=== PATIENT | female | born 1950 | race Caucasian/White ===

== ENCOUNTER → 2019-12-07 14:59 | Outpatient (CLI) | payer OTHER, SELFPAY ==
--- NOTE | 2019-12-07 15:03 | DI.MRI.S_ITS ---
PROCEDURE: MR LUMBAR SPINE WO CON INDICATIONS: RADICULOPATHY, LUMBAR REGION TECHNIQUE: Noncontrast sagittal T1 spin echo and T2 fast echo, sagittal STIR, axial T1 and T2 fast spin echo through the lumbar spine. In cases with scoliosis, additional coronal T2 fast spin echo may be performed. COMPARISON: None. FINDINGS: Image quality: Excellent. Alignment and Curvature: There is trace retrolisthesis of L1 on L2, L2 on L3, L3 on L4, trace anterolisthesis of L4 on L5, L5 on S1. Bone Marrow: Marrow is of normal overall signal. There is a focus of increased T1 and T2 signal at T11, T12 and L3 suggestive of hemangiomas. Minimal to mild reactive endplate changes are present at L5-S1. No acute vertebral body compression fractures. Spinal Cord: Conus medullaris terminates at the L1-L2 level. Visualized cord demonstrates normal signal and size. Paraspinous Soft Tissues: No paravertebral masses. Discs: Severe desiccation is present at L5-S1, [id number] at L1-L2, L2-3, L4-5 and mild L5-S1. L1-L2: Minimal disc bulge without spinal stenosis or foraminal narrowing. Mild facet and ligamentum flavum hypertrophy are present. L2-L3: Mild disc bulge without spinal stenosis. Mild left and mild to moderate right foraminal narrowing with facet and ligamentum flavum hypertrophy. L3-L4: Mild disc bulge without spinal stenosis. Minimal left foraminal narrowing with facet and ligamentum flavum hypertrophy. L4-L5: Mild disc bulge including a right foraminal component. There is compromise of the right lateral recess. Moderate to severe right and minimal to mild left foraminal narrowing. There is slight nerve root flattening noted on the right. Significant facet and ligamentum flavum hypertrophy are present. L5-S1: Mild disc bulge including right foraminal extension. There is mild compromise of the right lateral recess. Severe right and left foraminal narrowing is present with nerve root flattening bilaterally. Facet and ligamentum flavum hypertrophy are present. IMPRESSION: 1. Multilevel degenerative changes as above. 2. No spinal stenosis. 3. Multilevel foraminal narrowing most severe at L5-S1 secondary to facet/ligamentum flavum arthropathy as well as anterolisthesis. Dictated by: Valeria Ledbetter M.D. on 12/09/2019 at 8:55 Approved by: Valeria Ledbetter M.D. on 12/09/2019 at 9:12
== END ==
PROVIDERS: Referring Provider Physician Assistant; Visit Provider Physician Assistant
DX: M47.26 Other spondylosis with radiculopathy, lumbar region (principal); M47.27 Other spondylosis with radiculopathy, lumbosacral region; M48.07 Spinal stenosis, lumbosacral region
CPT/HCPCS: 72148

== ENCOUNTER → 2020-02-15 13:37 | Outpatient (CLI) | payer OTHER, SELFPAY ==
[2020-02-17 08:00] LABS: COVID19 Sendout Not Detected (Not Detect)
== END ==
PROVIDERS: Visit Provider Physician Assistant
DX: Z11.59 Encounter for screening for other viral diseases (principal)
CPT/HCPCS: 87635

== ENCOUNTER 2020-02-18 10:13 | Inpatient (IN) | payer OTHER, MEDICARE, SELFPAY ==
[2020-02-17 10:33] VITALS: BMI 30.8
[2020-02-18] VITALS (14 sets, daily range): BP systolic 99–132; BP diastolic 42–79; PULSE 68–82; RESP 12–20; TEMP 35.6–37.1; O2SAT 90–98; BMI 29.9
--- NOTE | 2020-02-18 | DI.RAD.S_ITS ---
PROCEDURE: XR LUMBAR SPINE 2-3V INDICATIONS: L4-5 TLIF TECHNIQUE: 2 views of the lumbar spine were acquired. COMPARISON: None. FINDINGS: Bones: Digital acquisition imaging shows immediate postoperative appearance after posterior fusion procedure spanning L4-L5 with transverse pedicle screws and vertical fixation rods bilaterally. There also is an interbody disc prosthesis device at the L4-5 disc space. Soft tissues: Overlying bowel gas pattern is normal. No suspicious soft tissue calcifications. IMPRESSION: Normal alignment established after L4-5 posterior fusion and interbody disc cage prosthesis. Dictated by: Rhett Ritter M.D. on 02/18/2020 at 16:24 Approved by: Rhett Ritter M.D. on 02/18/2020 at 16:25
--- NOTE | 2020-02-18 12:33 | PM.PREOP ---
Pre-operative Note COVID-19 COVID-19 status: Negative Result date/Date tested (Pos, Neg/Pending): 02/15/20 Interval Note History & Physical reviewed/Exam performed by Physician: Yes Changes to H&P: No
[2020-02-18] MEDS: LACTATED RINGERS 1,000 ML 42 ML IV ×2 (13:00→15:58)
--- NOTE | 2020-02-18 13:21 | PM.OP.1 ---
Operative Date/Time/Diagnoses Date of procedure: 02/18/20 Time of procedure: 16:02 Pre-op diagnosis: Lumbar stenosis with radiculopathy Lumbar spondylolisthesis Post-op diagnosis: same Procedure & Clinicians Procedure: L4-5 TLIF (posterior/posterior interbody fusion) with cage L4-5 screws Iliac crest bone graft aspirate L4-5 laminectomy Use of microscope Placement of epidural catheter Same procedure as scheduled: Yes Indications: [age] year old female with intractable pain from stenosis. They had failed conservative management and requested operative intervention. Risks and benefits of surgery were discussed and appropriate consents were obtained. Surgeon: Isaiah Tracy Marketing Research Analyst: Ursula Chavarria Anesthesia Type: General Operative Notes Findings: None Closure Type: primary Specimen(s): none sent Prosthetic devices, grafts, tissues, transplants, or devices: NuVasive MAS Reline screws Globus Rise cage Applied: catheter Estimated Blood Loss (mL): 20 Procedure in detail: The patient was brought to the operating room and intubated on the table. A time-out was performed. They were then rolled over to the well-padded Shailesh table in the prone position. Preoperative antibiotics were given. The back was prepped and draped in the standard sterile fashion. Using fluoroscopy, a 4 cm longitudinal incision was made to the left of the midline. We used Bovie to come down to and split the lumbodorsal fascia. Using fluoroscopy and monitoring, we then percutaneously placed Jamshidi needles down the pedicles of L4 and L5 on the left side. These were changed out to guidewires and then we tapped and then placed the NuVasive MAS Reline screw shanks. We then opened up the retractors and used Bovie to clear up the posterolateral gutter as well as medially along the lamina to the spinous processes. A bur was used to decorticate the transverse processes. We brought in the microscope. Using a combination of bur and Kerrison rongeurs, a laminectomy was performed from the left side. We cleared over past the midline and carefully depressed the dura until we were able to decompress the opposite side. We cleared out the neural foramen. This completed the laminectomy at L4-5. This was separate and distinct from the TLIF approach as we were decompressing the severely stenotic central canal and the nerves. We then began the TLIF prep. A complete facetectomy was performed on this side at L4-5. We carefully cleaned up the remainder of the foramen until we could easily retract the exiting root as well as clearing medially below the dura and expose the disc space. The disc was prepped with bipolar and then an annulotomy was performed. We performed a diskectomy using a combination of paddles, ewelina, pituitaries, and curettes. We distracted the disc using a paddle and locked the retractor in an open position. We then filled the disc space with Osteocel bone graft. We then placed the globus rise cage under fluoroscopy and then filled this in with more bone graft. The distraction on the retractor was released to compress down. This completed the posterior interbody fusion portion of the TLIF at L4-5. An epidural catheter was then prepped with 4 mL of 0.5% Marcaine, 1 mg Stadol, 4 mg Duramorph, and 100 mcg of fentanyl and placed in the spinal canal by carefully depressing the dura and advancing it 6 cm cephalad under the remaining lamina without resistance. We then placed the screw heads, rosangela, and locked down the set screws. The wound was copiously irrigated. A small stab incision was made over the PSIS. We used a Jamshidi needle to aspirate several mL of bone marrow from the pelvis. This was mixed with the remaining Osteocel and combined with all of the locally harvested bone graft and placed in the posterolateral gutter for the posterior fusion of the TLIF at L4-5. The muscle fascia was closed. The epidural catheter was then injected without resistance and the catheter was pulled. We then went to the opposite side. Again using fluoroscopy, a 3 cm incision was made and Bovie was used to come down to split the fascia. Using neural monitoring and fluoroscopy, Jamshidi needles were advanced down the pedicles of L4 and L5 on the right side. These were switched over guidewires, tapped, and screws placed. We then placed a rosangela and locked the set screws on this side. The wound was irrigated. The fascia was closed. Vancomycin powder was placed in the wounds. The superficial and skin were closed. A sterile dressing was placed. The patient was then rolled over extubated and brought to recovery room without complications. Complications: none Post-operative Condition: stable Disposition: PACU Plan for aftercare: Admit for 1-2 days
[2020-02-18] MEDS: CEFAZOLIN 2 GM/100 ML FROZ.PIGGY IV ×2 (14:04→21:30)
--- NOTE | 2020-02-18 14:29 | SUR.OPER ---
Prone on spine table, head in foam head support, padded chest and pelvic supports, gel pad at knees, lower legs supported by pillows; nipples, genitalia and toes free of pressure, arms secured on foam padded arm boards at <90 degrees abduction. Tape over blanket at thigh secured to table.
[2020-02-18] MEDS: THROMBIN (RECOMBINANT) 5,000 UNIT VIAL 5000 UNIT TOP (14:41)
[2020-02-18] MEDS: VANCOMYCIN 1,000 MG VIAL 1000 MG TOP (14:41)
[2020-02-18] MEDS: SODIUM CHLORIDE 0.9% 1,000 ML, GENTAMICIN 80 MG IRR (14:41)
[2020-02-18] MEDS: BUPIVACAINE 0.5% (PF) 4 ML, MORPHINE-PF 4 MG, BUTORPHANOL 1 MG, fentaNYL 100 MCG INJ (15:30)
[2020-02-18] MEDS: HYDROMORPHONE 2 MG INJ IV ×4 (16:18→16:41)
[2020-02-18] MEDS: LORazepam 2 MG/ML INJ 0.5 MG IV (16:20)
[2020-02-18] MEDS: hydrOXYzine pamoate 25 MG CAPSULE PO (16:51)
[2020-02-18] MEDS: OXYCODONE IR 5 MG TABLET PO ×2 (16:51→20:14)
--- NOTE | 2020-02-18 17:20 | SUR.PHASEI ---
Report called to
--- NOTE | 2020-02-18 17:34 | SUR.PHASEI ---
Patient transferred to the floor. Report given to Natalya. VS stable. Dressing checked with RN. IV saline locked.
[2020-02-18] MEDS: CELECOXIB 200 MG CAPSULE 400 MG PO (18:28)
[2020-02-18] MEDS: LACTATED RINGERS 1,000 ML 125 ML IV (18:28)
[2020-02-18] MEDS: GABAPENTIN 600 MG TABLET PO (21:29)
[2020-02-18] MEDS: SENNOSIDES 8.6 MG TABLET 17.2 MG PO (21:29)
[2020-02-18] MEDS: DOCUSATE 100 MG CAPSULE PO (21:29)
[2020-02-18] MEDS: CELECOXIB 200 MG CAPSULE PO (21:29)
[2020-02-18] MEDS: SIMVASTATIN 20 MG TABLET 10 MG PO (21:30)
--- NOTE | 2020-02-18 23:27 | PC.NURSE ---
Patient doing well post op. Pain 7/, given PRN oxycodone with relief to 2/10 pain. Ate all of her dinner. O2 @ 97, down to 93 when sleeping. On 2L O2.
[2020-02-19] VITALS: BP 104/57; PULSE 72; RESP 18; TEMP 36.5; O2SAT 95
[2020-02-19 03:41] VITALS: BP 100/59; PULSE 70; RESP 18; TEMP 36.2; O2SAT 97
[2020-02-19] MEDS: LACTATED RINGERS 1,000 ML 125 ML IV (03:53)
[2020-02-19] MEDS: CEFAZOLIN 2 GM/100 ML FROZ.PIGGY IV (05:31)
[2020-02-19] MEDS: OXYCODONE IR 5 MG TABLET PO ×3 (05:31→15:26)
[2020-02-19] MEDS: LEVOTHYROXINE 100 MCG TABLET PO (05:48)
[2020-02-19 06:20] LABS: Hematocrit 34.3 % (36-46); Hemoglobin 11.2 g/dL (12.0-16.0)
[2020-02-19 07:20] VITALS: BP 99/58; PULSE 69; RESP 15; TEMP 36.6; O2SAT 94
--- NOTE | 2020-02-19 07:43 | PM.PNPO.1 ---
Subjective Subjective Date Patient Seen: 02/19/20 Time Patient Seen: 07:43 Interval history: She is doing very well. Pain is about 5/10. No leg symptoms. Exam Vital Signs (past 8 hours): - 02/19/20 00:00 02/19/20 03:41 Temperature 97.7 F 97.1 F L Pulse Rate 72 70 Respiratory Rate 18 18 Blood Pressure 104/57 L 100/59 L Pulse Oximetry 95 97 Oxygen Delivery Method Nasal Cannula Oxygen Flow Rate 0 Const Orientation: alert and oriented x3 Back/Spine/Pelvis Other: CDI. 5/5 motor both lower extremities Objective Labs Result Diagrams: 02/19/20 06:00 Labs: Laboratory Results - last 24 hr 02/19/20 06:00 Hgb 11.2 L Hct 34.3 L Assessment & Plan Post-op Postoperative Procedures: Procedures Operation Date: 02/18/20 12:15 Actual Procedures Side Surgeon p L4-5 laminectomy & instrumented fusion (TLIF) with bone graft Isaiah Tracy MD She is doing well. Mobilize today with physical therapy. Anticipate discharge home probably tomorrow Quality VTE Deep Vein Thrombosis/Pulmonary Embolism Present on Admission: No
[2020-02-19] MEDS: CELECOXIB 200 MG CAPSULE PO ×2 (08:51→21:59)
[2020-02-19] MEDS: ACETAMINOPHEN 325 MG TABLET PO (08:51)
[2020-02-19] MEDS: DOCUSATE 100 MG CAPSULE PO ×2 (08:51→21:58)
[2020-02-19] MEDS: PANTOPRAZOLE 20 MG TABLET PO (08:51)
--- NOTE | 2020-02-19 09:15 | PT.IIE ---
Current Diagnoses Spondylolisthesis, lumbar region (02/18/20) Spinal stenosis, lumbar region with neurogenic claudication (02/18/20) Surgery Performed Operation Date: 02/18/20 12:15 Actual Procedures p L4-5 laminectomy & instrumented fusion (TLIF) with bone graft - Isaiah Tracy MD Surgical History (Last Updated 02/17/20 @ 12:18 by Renita Azul, RN) History of 2 sections (Acute) History of hysterectomy (Acute) History of surgery (Acute) Hx of cholecystectomy (Acute) Hx of knee surgery (Acute) Hx of tonsillectomy (Acute) Medical History (Last Updated 02/17/20 @ 12:18 by Renita Azul RN) Ankle fracture, right (Acute) Arthritis (Acute) GERD (gastroesophageal reflux disease) (Acute) Hearing impaired (Acute) HLD (hyperlipidemia) (Acute) Hypothyroid (Acute) Sciatica (Acute) Superficial vein thrombosis (Acute 2018) Tinnitus (Acute) Wrist fracture (Acute) Physical Therapy Inpatient Evaluation/Re-Eval M1 PT/OT-IP Prior Functional Status Start: 02/19/20 12:48 Freq: NEEDED Status: Active Protocol: Document 02/19/20 09:15 AB (Rec: 02/19/20 13:08 [id number]) Medical Review Prior Functional Status Medical History Reviewed Yes Communication able to make needs known Mobility and Gait pt stated that she is modified independent with all mobilities and ambulation without AD indoors but uses a walking stick for outdoor mobility. stated that since September of this year, due to pain , was needing to use more of her SPC for indoor mobility but can still ambulate without AD but has to use SPC for outdoor mobility Social History Household Members none Living Arrangements House Number of Floors (Floors) Two Floors Number of Stairs To Enter/Railing? 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 pt has a shower chair with back rest at her own house that she can put at her daughter's shower to use M2 PT-IP Current Condition Start: 02/19/20 12:48 Freq: NEEDED Status: Active Protocol: Document 02/19/20 09:15 AB (Rec: 02/19/20 13:08 [email or web address]) Physical Therapy Current Condition Current Condition Evaluation Date 02/19/20 Treatment Diagnosis s/p L4-5 TLIF/ fusion; difficulty in walking Onset Date 02/18/20 Precautions Lumbar Precautions Log Roll,No Twisting,Limit Bending,Lifting Restriction of 10 lbs,Gait Belt above Incisional Area M3 PT-IP Subjective Start: 02/19/20 12:48 Freq: NEEDED Status: Active Protocol: Document 02/19/20 09:15 AB (Rec: 02/19/20 13:08 AB [email or web address]) Subjective Physical Therapy Visit Type Type Initial Evaluation Visit Start Time 09:15 Visit Stop Time 10:14 Total Visit Minutes 59 Number of MUSIC INDUSTRY INTERN Visits 0 Physical Therapy Visit Comments Patient Comments pt is agreeable to do PT Therapy Pain Assessment Pain When Pain Assessed At Rest Pain Present Pain Present Pain Reported Location back Intensity 4 Scale Used Numeric (0 - 10) Pain Management Techniques Apply Cold,Distraction, Modification of Treatment,Re- positioning,Timing of Activity with Medications M4 PT-IP Mobility and Gait Start: 02/19/20 12:48 Freq: NEEDED Status: Active Protocol: Document 02/19/20 09:15 AB (Rec: 02/19/20 13:08 [email or web address]) PT-Bed Mobility Assessment Rolling Type of Rolling Log Rolling Supine to Sit Supine to Sit Contact Guard Assistance PT-Transfer Assessment Sit to and From Stand Sit to and from Stand Moderate Assistance,Maximum Assistance,1 Person Assistance ,Use of Upper Extremities Equipment Transfer Assistive Device Gait Belt,Front Wheeled Walker Orthotic/Prosthetic Devices or Brace: No Transfers Transfer Destination Chair Transfer Technique ambulated using FWW Transfer Ability Level of Assist Moderate Assistance,Maximum Assistance,1 Person Assistance ,Use of Upper Extremities Comments Mobility Comments educated pt on back precautions and log roll bed mobility. BP supine: 92/51. completed supine to sit CGA and cues. pt was able to sit on EOB SBA. c/o slight dizziness. BP checked: 96/62. completed sit to stand x 2 attempts mod to max A and max cues. chair positioned close to pt. complated step transfer to chair using FWW mod to max A and cues. BP checked after transfer: 96/46. pt agreed to ambulate and completed sit to stand from chair mod to max A and cues and ambulated ~ 15 ft using FWW mod to max A and cues. slight R knee unsteadiness requiring cues for quad activation. pt agreed to sit up on chair. positioned on chair. call light and table placed within reach. BP at end of PT session: 94/55. informed pt regarding current mobility and caregiver training recommendation. set up a 2pm PT session later today with daughter. also reminded pt to obtain a FWW and understood. informed nurse regarding BP reading and c/o dizziness. Gait Assessment Gait Gait Assistance Required: Moderate Assistance,Maximum Assistance,1 Person Assist Distance (Feet) 15 Able to Maintain Weight Bearing Status Yes During Gait Assistive Devices Assistive Device Gait Belt,Front Wheeled Walker Orthotic/Prosthetic Devices or Brace: No Gait Deviations General Gait Pattern Antalgic,Step-to Gait Factors Limiting Gait Function Factors Limiting Gait Function Decreased Activity Tolerance, Decreased Sensation,Decreased Strength,Limited Range of Motion,Pain,Poor Balance,Poor Safety Awareness PT-Balance Assessment Sitting Balance and Reactions Static Sitting Balance Ability Good Dynamic Sitting Balance Ability Good Standing Balance and Reactions Static Standing Balance Ability Fair Dynamic Standing Balance Ability Fair Device Used FWW M5 PT-IP Objective Assessments Start: 02/19/20 12:48 Freq: NEEDED Status: Active Protocol: Document 02/19/20 09:15 AB (Rec: 02/19/20 13:08 AB [email or web address]) Orientation Orientation/Cognition Level of Alertness Alert Orientation Name,Place,Situation Safety Awareness Decreased Safety Awareness Gross Range of Motion Lower Extremity ROM Assessment Within Functional Limits Strength Lower Extremity Strength Assessment Bilaterally Impaired Comments Strength Comments RLE 4-/5 LLE 4/5 Coordination Assessment Gross Coordination Gross Coordination WNL Sensation Assessment Comments Sensation Comments able to determine light touch sensation on BLE but stated that sensation is decreased Muscle Tone Muscle Tone WNL Yes M6 PT-IP Treatment Start: 02/19/20 12:48 Freq: NEEDED Status: Active Protocol: Document 02/19/20 09:15 AB (Rec: 02/19/20 13:08 AB [email or web address]) Physical Therapy Treatment Education Education Provided Precautions,Weight Bearing Status,Post-Op Packet,Safety M7 PT-IP Assessment and Plan Start: 02/19/20 12:48 Freq: NEEDED Status: Active Protocol: Document 02/19/20 09:15 AB (Rec: 02/19/20 13:08 AB [email or web address]) PT Summary Assessment and Plan Potential Rehabilitation Potential Good Status of Condition at Evaluation Stable Summary Impairments Pain,ROM,Strength,Balance, Coordination,Sensation,Tone, Cognition,Bed Mobility, Transfers,Gait,Activity Tolerance Assessment Summary pt requiring mod to max A with mobility and c/o dizziness during mobility. pt plans to go home to daughter's house and daughter will assist pt. will conduct caregiver training and set up for 2 pm today. will conduct further training if needed. will continue to assess progress. Goals Bed Mobility Goal Standby Assistance Transfer Goal Standby Assistance,Front Wheeled Walker Gait Goal Standby Assistance,Front Wheel Walker Gait Distance 100 Other Goals improve ambulation using FWW/ 4WW SBA 200 ft up/down steps 1 rail SBA Days to Meet Goals 5 Frequency of Treatment Frequency Of Treatment Twice a Day Treatment Plan Physical Therapy Treatment Plan Bed Mobility Training,Transfer Training,Gait Training, Therapeutic Exercise,Balance Retraining,Post Op Education, Discharge Planning,Hot or Cold Pack,Neuromuscular Re-ed, Coordination Retraining,Manual Therapy Recommendations To Nursing Amount of Assist Needed 1 Person Assist Discharge Recommendations PT Discharge Recommendations Home with 31/10 Assist,Home Health Transportation Needs at Discharge Private Vehicle
[2020-02-19 11:00] VITALS: BP 105/55; PULSE 69; RESP 15; TEMP 36.2; O2SAT 96
--- NOTE | 2020-02-19 11:56 | PC.NURSE ---
Assess- Patient just medicated with 5mg of oxycodone, this has been effective for pain control. Dressing to lower back is cdi. CMS wnl and she denies any numbness or tingling to her extremities. Up with 1 person assist. She is having a little bit of trouble getting out of bed with physical therapy but is able to do it slowly. Sitting up in the chair now and tolerating lunch. She has been heplocked.
--- NOTE | 2020-02-19 14:09 | PT.IPTN ---
Current Diagnoses Spondylolisthesis, lumbar region (02/18/20) Spinal stenosis, lumbar region with neurogenic claudication (02/18/20) Surgery Performed Operation Date: 02/18/20 12:15 Actual Procedures p L4-5 laminectomy & instrumented fusion (TLIF) with bone graft - Isaiah Tracy MD Physical Therapy Treatment Note M2 PT-IP Current Condition Start: 02/19/20 12:48 Freq: NEEDED Status: Active Protocol: Document 02/19/20 09:15 AB (Rec: 02/19/20 13:08 AB [id number]) Physical Therapy Current Condition Current Condition Evaluation Date 02/19/20 Treatment Diagnosis s/p L4-5 TLIF/ fusion; difficulty in walking Onset Date 02/18/20 Precautions Lumbar Precautions Log Roll,No Twisting,Limit Bending,Lifting Restriction of 10 lbs,Gait Belt above Incisional Area M3 PT-IP Subjective Start: 02/19/20 12:48 Freq: NEEDED Status: Active Protocol: Document 02/19/20 14:09 AB (Rec: 02/19/20 15:49 AB [id number]) Subjective Physical Therapy Visit Type Type Treatment Note Visit Start Time 14:09 Visit Stop Time 14:52 Total Visit Minutes 43 Number of SALES ENGAGEMENT MANAGER Visits 0 Physical Therapy Visit Comments Patient Comments pt is agreeable to do PT; daughter in room for cc training Therapy Pain Assessment Pain When Pain Assessed At Rest Pain Present Pain Present Pain Reported Location back Intensity 5 Scale Used Numeric (0 - 10) Pain Management Techniques Distraction,Modification of Treatment,Re-positioning, Timing of Activity with Medications M4 PT-IP Mobility and Gait Start: 02/19/20 12:48 Freq: NEEDED Status: Active Protocol: Document 02/19/20 14:09 AB (Rec: 02/19/20 15:49 AB [id number]) PT-Bed Mobility Assessment Rolling Type of Rolling Log Rolling Level of Assist Standby Assistance Supine to Sit Supine to Sit Standby Assistance Sit to Supine Sit to Supine Minimal Assistance,Moderate Assistance,1 Person Assistance PT-Transfer Assessment Sit to and From Stand Sit to and from Stand Contact Guard Assistance,1 Person Assistance,Use of Upper Extremities Equipment Transfer Assistive Device Gait Belt,Front Wheeled Walker Orthotic/Prosthetic Devices or Brace: No Transfers Transfer Destination Bed Transfer Technique ambulated using FWW Transfer Ability Level of Assist Contact Guard Assistance,1 Person Assistance,Use of Upper Extremities Comments Mobility Comments caregiver training conducted. educated daughter on pt's precautions and log roll bed mobility. showed daughter on how to use safety belt and was able to put safety belt on pt . daughter assisted pt with sit to stand and ambulation in room using FWW towards the bed. daughter was able to assist pt safely. pt completed supine <>sit x 2 sets. educated daughter on how to assist pt and was able to counter demonstrate. pt ambulated out to the hallway towards the stairs ~ 50 ft SBA . completed up/down stairs using bilateral rails CGA to min A and then completed again using just R rail requiring min A and cues. required assist for R LE stability and cues for R quads activation. pt requiring more stability with RLE towards end of stair climbing. showed daughter on how to assist pt but will need more training. pt unable to do stairs again due to tiredness. pt ambulated back to the room FWW CGA and completed sit to supine with daughter assisting. positioned pt in bed. call light and table placed within reach. set up more caregiver training with daughter : 1000 am tomorrow 02/19. Gait Assessment Gait Gait Assistance Required: Contact Guard Assist Distance (Feet) 50 Able to Maintain Weight Bearing Status Yes During Gait Assistive Devices Assistive Device Gait Belt,Front Wheeled Walker Orthotic/Prosthetic Devices or Brace: No Gait Deviations General Gait Pattern Antalgic,Decreased Stride Length,Decreased Feet Clearance Factors Limiting Gait Function Factors Limiting Gait Function Decreased Activity Tolerance, Decreased Sensation,Decreased Strength,Limited Range of Motion,Pain,Poor Balance,Poor Safety Awareness Stair Climbing Assessment Evaluation Level of Assist On Stairs Contact Guard Assistance, Minimal Assistance Devices Stair Climbing Assistive Devices Four Wheel Walker,Right Railing Technique/Endurance Stair Climbing Direction Ascend and Descend Stair Climbing Technique Step to Step Number of Steps Climbed 3 Stair Climbing Set # Repetitions (reps) 2 Comments Stair Climbing Comments pls refer to mobility section for details M5 PT-IP Objective Assessments Start: 02/19/20 12:48 Freq: NEEDED Status: Active Protocol: Document 02/19/20 09:15 AB (Rec: 02/19/20 13:08 AB [id number]) Orientation Orientation/Cognition Level of Alertness Alert Orientation Name,Place,Situation Safety Awareness Decreased Safety Awareness Gross Range of Motion Lower Extremity ROM Assessment Within Functional Limits Strength Lower Extremity Strength Assessment Bilaterally Impaired Comments Strength Comments RLE 4-/5 LLE 4/5 Coordination Assessment Gross Coordination Gross Coordination WNL Sensation Assessment Comments Sensation Comments able to determine light touch sensation on BLE but stated that sensation is decreased Muscle Tone Muscle Tone WNL Yes M6 PT-IP Treatment Start: 02/19/20 12:48 Freq: NEEDED Status: Active Protocol: Document 02/19/20 14:09 AB (Rec: 02/19/20 15:49 AB [id number]) Physical Therapy Treatment Education Education Provided Precautions,Safety M7 PT-IP Assessment and Plan Start: 02/19/20 12:48 Freq: NEEDED Status: Active Protocol: Document 02/19/20 14:09 AB (Rec: 02/19/20 15:49 AB [id number]) PT Summary Assessment and Plan Potential Rehabilitation Potential Good Summary Impairments Pain,ROM,Strength,Balance, Coordination,Sensation,Bed Mobility,Transfers,Gait, Activity Tolerance Progress Towards Goals Slow Progress due to Pain,Slow Progress due to Activity Tolerance Assessment Summary caregiver training conducted but further training needed. set up caregiver training with daughter again at 1000 am tomorrow 02/19. will continues to assess progress. Goals Bed Mobility Goal Standby Assistance Transfer Goal Standby Assistance,Front Wheeled Walker Gait Goal Standby Assistance,Front Wheel Walker Gait Distance 100 Other Goals improve ambulation using FWW/ 4WW SBA 200 ft up/down 6 steps 1 rail SBA Days to Meet Goals 5 Frequency of Treatment Frequency Of Treatment Twice a Day Treatment Plan Physical Therapy Treatment Plan Bed Mobility Training,Transfer Training,Gait Training, Therapeutic Exercise,Balance Retraining,Post Op Education, Discharge Planning,Hot or Cold Pack,Neuromuscular Re-ed, Coordination Retraining,Manual Therapy Recommendations To Nursing Amount of Assist Needed 1 Person Assist Discharge Recommendations PT Discharge Recommendations Home with 31/10 Assist,Home Health Transportation Needs at Discharge Private Vehicle
--- NOTE | 2020-02-19 14:23 | OT.IP.EVAL ---
Current Diagnoses Spondylolisthesis, lumbar region (02/18/20) Spinal stenosis, lumbar region with neurogenic claudication (02/18/20) Surgery Performed Operation Date: 02/18/20 12:15 Actual Procedures p L4-5 laminectomy & instrumented fusion (TLIF) with bone graft - Isaiah Tracy MD Past Medical History (Last Updated 02/17/20 @ 12:18 by Renita Azul, RN) Ankle fracture, right (Acute) Arthritis (Acute) GERD (gastroesophageal reflux disease) (Acute) Hearing impaired (Acute) HLD (hyperlipidemia) (Acute) Hypothyroid (Acute) Sciatica (Acute) Superficial vein thrombosis (Acute 2018) Tinnitus (Acute) Wrist fracture (Acute) Surgical History (Last Updated 02/17/20 @ 12:18 by Renita Azul RN) History of 2 sections (Acute) History of hysterectomy (Acute) History of surgery (Acute) Hx of cholecystectomy (Acute) Hx of knee surgery (Acute) Hx of tonsillectomy (Acute) Occupational Therapy Inpatient Evaluation/Re-Eval M1 PT/OT-IP Prior Functional Status Start: 02/19/20 12:48 Freq: NEEDED Status: Active Protocol: Document 02/19/20 09:15 AB (Rec: 02/19/20 13:08 [id number]) Medical Review Prior Functional Status Medical History Reviewed Yes Communication able to make needs known Mobility and Gait pt stated that she is modified independent with all mobilities and ambulation without AD indoors but uses a walking stick for outdoor mobility. stated that since September of this year, due to pain , was needing to use more of her SPC for indoor mobility but can still ambulate without AD but has to use SPC for outdoor mobility Social History Household Members none Living Arrangements House Number of Floors (Floors) Two Floors Number of Stairs To Enter/Railing? 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 stated that since September of this year, due to pain , was needing to use more of her SPC for indoor mobility but can still ambulate without AD but has to use SPC for outdoor mobility Activities of Daily Living and IADL's pt reports (I) with ADL/IADLs at baseline Social History Household Members none Living Arrangements House Number of Floors (Floors) Two Floors Number of Stairs To Enter/Railing? 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 [employer] pt has a shower chair with back rest at her own house that she can put at her daughter's shower to use M2 OT-IP Current Condition Start: 02/19/20 14:07 Freq: Status: Active Protocol: Document 02/19/20 14:08 RM (Rec: 02/19/20 14:23 RM [id number]) Occupational Therapy Current Condition Current Condition Evaluation Date 02/19/20 Treatment Diagnosis TLIF with bone graft Diagnosis Onset Date 02/18/20 Post Operative Precautions Lumbar Precautions Log Roll,No Twisting,Limit Bending,Lifting Restriction of 10 lbs,Gait Belt above Incisional Area M3 OT- IP Subjective and Pain Start: 02/19/20 14:07 Freq: Status: Active Protocol: Document 02/19/20 14:08 RM (Rec: 02/19/20 14:23 RM [id number]) OT- Subjective Occupational Therapy Visit Type Type Initial Evaluation Visit Start Time 13:20 Visit Stop Time 14:00 Total Visit Minutes 40 Occupational Therapy Visit Comments Patient Comments I don't want to [place] to do anything. My daughter will help. Patient/Caregiver Goals Return home with her daughter with goal to return to her own home when she is ready. OT Pain Assessment Pain When Pain Assessed During Mobility Pain Present Pain Present Pain Reported Location back Intensity 7 Scale Used Numeric (0 - 10) Description With Movement Pain Behaviors Facial Grimacing,Wincing Management Techniques Modification of Treatment,Re- positioning,Timing of Activity with Medications M4 OT- IP ADL's Start: 02/19/20 14:07 Freq: Status: Active Protocol: Document 02/19/20 14:08 RM (Rec: 02/19/20 14:23 RM [id number]) OT [id number] Comments OT Self-Feeding Comments not assessed, no concerns noted OT ADL-Grooming Comments OT Grooming Comments not assessed, no concerns noted OT ADL-Oral Care Comments Oral Care Comments not assessed, no concerns noted OT ADL-Dressing General Eval Upper Body Dressing Ability Independent Lower Body Dressing Ability Maximum Assistance Comments OT Dressing Comments Attempted ADL assessment for LB dressing, however, patient declined and reports plan for daughter to assist at discharge. Reviewed use of long handled equipment to assist with dressing with patient able to verbalize understanding. OT ADL-Toileting General Evaluation Toileting Ability Standby Assistance Areas Needing Assistance Empty Catheter or Colostomy Devices Toileting Assistive Devices Grab Bars Comments OT Toileting Comments Patient reports episodes of large urinary incontinence prior to surgery and is concerned with catheter removal. Discussed use of BSC to assist with episodes of urgency while her mobility is limited or at night and can also be placed over toilet at her daughter's home to assist with safe toilet transfers. Pt verbalized understanding and planning to purchase BSC. OT ADL-Bathing Comments OT Bathing Comments not assessed, anticipate need for assist with transfer into shower at tdischarge and LB bathing as needed with daughter planning to assist M5 OT- IP IADL's Start: 02/19/20 14:07 Freq: Status: Active Protocol: Document 02/19/20 14:08 RM (Rec: 02/19/20 14:23 RM [id number]) OT-Instrumental Activities of Daily Living Deficits IADL Deficits Identified Deficits Home Safety Awareness Home Safety Comments Patient with impaired performance with IADLs d/t pain and decreased functional mobility. Plans to discharge home with her daughter who will assist with IADLs. M6 OT- IP Functional Cognition Start: 02/19/20 14:07 Freq: Status: Active Protocol: Document 02/19/20 14:08 RM (Rec: 02/19/20 14:23 RM [id number]) Cognitive Factors Limiting Selfcare Function Cognitive Ability Level of Alertness Alert Attention Span Ability Capable of Focused Attention, Capable of Sustained Attention Ability to Follow Commands Able to Follow Multi-Step Commands Memory Description No Deficits Noted Safety Awareness No Deficits Noted Problem Solving Ability No deficits Noted Executive Function Ability No Deficits Noted Abstract Thinking Ability No Deficits Noted OT- Vision and Hearing OT- Hearing Assessment OT- Hearing Assessment WFL OT- Vision Assessment Visual Acuity WFL M7 OT- IP Mobility and Balance Start: 02/19/20 14:07 Freq: Status: Active Protocol: Document 02/19/20 14:08 RM (Rec: 02/19/20 14:23 RM [id number]) OT- Bed Mobility Assessment Rolling Type of Rolling Log Rolling Level of Assistance Standby Assistance Supine to Sit Supine to Sit Assist Standby Assistance Scooting Scooting to Edge of Bed Standby Assistance OT-Transfer Assessment Sit to and From Stand Sit to and from Stand Standby Assistance Transfers Transfer Ability Standby Assistance Technique Transfer Destination Bed,Chair,Toilet Devices Transfer Assistive Devices Front Wheeled Walker OT- Gait Assessment Gait Gait Assistance Required: Standby Assistance Assistive Devices Assistive Device Front Wheeled Walker OT- Balance Assessment Sitting Balance and Reactions Static Sitting Balance Ability Good Dynamic Sitting Balance Ability Good Standing Balance and Reactions Static Standing Balance Ability Good Dynamic Standing Balance Ability Fair M8 OT- IP Objective Assessments Start: 02/19/20 14:07 Freq: Status: Active Protocol: Document 02/19/20 14:08 RM (Rec: 02/19/20 14:23 RM [id number]) OT Gross Range of Motion Upper Extremity Range of Motion Assessment Within Functional Limits OT Strength Upper Extremity Strength Assessment Within Functional Limits M9 OT- IP Assessment and Plan Start: 02/19/20 14:07 Freq: Status: Active Protocol: Document 02/19/20 14:08 RM (Rec: 02/19/20 14:23 RM [id number]) OT Summary Assessment and Plan Potential Rehabilitation Potential Good Summary OT Impairments Pain,Range of Motion,Balance, Functional Mobility,Dressing, Toileting,Bathing,Toilet Transfers,Shower Transfers Progress Towards Goals Safe For Discharge Assessment Summary Patient and daughter provided education of AE/DME and patient declines further OT. Will plan to discharge OT services at this time. Frequency of Treatment Frequency Of Treatment Discharge Discharge Recommendations OT Discharge Recommendations Home with Assistance Other Discharge Recommendations Patient requests no further OT services and will discharge OT at this time. Safe for discharge home with daughter who was present at [facility] with all questions addressed. Home Equipment Needs BSC and sock-aid (also will benefit from primer expeditor and drier, dressing stick, and long-handled shoe horn which she already has). Provided handout on DME resources.
[2020-02-19 15:25] VITALS: BP 101/55; PULSE 69; RESP 16; TEMP 36.7; O2SAT 98
--- NOTE | 2020-02-19 16:52 | CM.DANOTE ---
DCP/Assessment: Reviewed chart. Patient is a 69yr old female admitted [facility] on 02-18-20. PCP listed is Gayatri Hodges. Primary payor is 1[facility]. Met with patient this AM explained CM/SW role. Patient up in recliner at time of visit, alert and oriented. Patient reports that she plans to d/c home when medically stable. Patient has family that includes daughter from [place] that will be coming to stay with her upon d/c. Patient has another daughter/Padmini nearby. Patient does not anticipate d/c planning needs at this time. CM team to continue to follow closely. P: Home when medically stable. No needs at time of assessment. CM team to continue to follow if needs arise. TISH Reyes Discharge Planning/Care Management CM Discharge Assessment Start: 02/19/20 16:47 Freq: Status: Active Protocol: Document 02/19/20 16:48 KJS (Rec: 02/19/20 16:52 KJS [id number]) Discharge Planning Assessment Assigned Dish Machine Operator TISH Reyes Contact Information Padmini Iraheta (daughter) Advance Directives? No History Provided By Patient,Medical Record Prior Living Arrangements House Household Members none Type of transporation used prior to Drives own vehicle admit Independent with ADL's Yes Caregiver for Another No DME Already Rented / Owned FWW / Walker Comment Patient has walker in room. Patient does not use DME at baseline. Daughter attempting to get her FWW for home use. Barriers to Discharge No Discharge Plan Home Transportation Arrangement Family to provide transport. Referrals Initiated None needed Additional Comment No anticipated d/c planning needs at time of assessment. CM team to continue to follow. Whiteboard Updated in Patient Room with Yes name and ext. # of Dish Machine Operator Review Status In Process Next Review Type Continued Stay Review Pre-Anesthesia Assessment Start: 02/17/20 10:33 Freq: Status: Active Protocol: Document 02/17/20 10:33 CAB (Rec: 02/17/20 11:53 CAB [id number]) Pre-Anesthesia Assessment Preferred Name Taylor Patient Information Reviewed Via Phone Assessment Assessment Completed With Patient H&P Completed Within 30 Days Yes Diagnostic Results EKG Comment Outside EKG, UA only scanned, COVID screen @ 02/15/20 Negative Primary Care Provider Gayatri Holiday Seen Specialist in Last 12 Months Yes Specialist Seen Orthopedist Primary Language Italian Telecasting Technician Required No Height 160.02 cm Weight 78.925 kg Body Mass Index (BMI) 30.8 Hearing Ability Hard of Hearing Visual Assist Glasses Dentition Type Teeth, Natural Present Barriers to Learning Auditory Hx Anesthesia Reactions No Hx Family Anesthesia Reaction No Hx Malignant Hyperthermia No Hx Blood Transfusions Yes: Anemia, unknown etiology 2013 Hx Blood Transfusion Reaction No Anesthesia Review Requested No alcohol intake current Alcohol Intake Frequency Other: Occasional Smoking Status Never smoker Substance Use Type does not use Pain Present Pain Reported Musculoskeletal Symptoms Back Pain,Muscle Weakness, Numbness,Radiating Pain into Limb,Tingling History of Falling (Recent or History of Yes ) Patient is completely paralyzed or No completely immobile Prosthesis or Orthotic Device Cane Mental Status Oriented to own ability Is patient on oxygen? No Does patient have GREGORIO/SOB Yes Hx Sleep Apnea No Currently Taking a Beta Vita No Can You Climb a Flight of Stairs Without Yes SOB Hx Chest Pain Yes Hx SOB Yes Hx Syncope or Dizziness No Anti-Coagulant Therapy No Has a Simulation Analyst No Cardiac Testing No Hx Pacemaker/ICD No Pacemaker Rep Required? No Cardiac Clearance Received Not Applicable Diet Type At Home Regular dysphagia No Comment Bowel urge incontinence r/t admit diagnosis Bladder Pattern Incontinent,Urgency Urinary Catheter Present No Hx Urinary Self Catheterization No Diabetes No Patient No Lactating No Hx Drug Resistant Organism No Presence of External or Internal Medical No Devices Have you had any close contact with No someone diagnosed with COVID-19? Marital Status Lives With none Prior Living Arrangements House Number of Floors (Floors) Two Floors Support System Child/Children Does the Patient Have Assistance After Yes: Will DC to daughter's Surgery house first to assist w/care Patient Discharge Plan Description Other Comment Pt advised 2 day length of stay per surgeon Feels Safe in Current Environment Yes Been Physically Hurt or Threatened By a No Person in Current Environment Do you have thoughts of harming yourself None or others? Are you currently considering suicide? No Do you have a plan to hurt yourself or No Plan others? Do You Have Any Spiritual Beliefs That No May Affect Your HC Choices? Do You Have Any Cultural Practices That No May Affect Your HC Choices? Comment Anabaptist Who Can We Speak to About Patient's Care Family, friends Identifying Code for Release of Patient Declines to issue Information Health Care Proxy/Next of Kin Padmini (daughter) Nickolas (son-in- law) Health Care Proxy Phone Number Padmini: [phone] Nickolas: Emergency Contact Name Padmini (daughter) Nickolas (son-in- law) Emergency Contact Phone Number Padmini: [phone] Nickolas: Advance Directives? No Power of Sewer System Supervisor No PAC Instructions Durable medical equipment, Medications to take/avoid, Nasal antibiotic,No ETOH/ petroleum product on skin DOS, NPO,Pre-surgical wash,Sensory aids,Sturdy shoes/comfortable clothes,Do not bring valuables and remove jewelry
[2020-02-19 19:46] VITALS: BP 100/55; PULSE 77; RESP 15; TEMP 37.2; O2SAT 94
[2020-02-19] MEDS: OXYCODONE IR 10 MG TABLET PO (21:57)
[2020-02-19] MEDS: SIMVASTATIN 20 MG TABLET 10 MG PO (21:58)
[2020-02-19] MEDS: SENNOSIDES 8.6 MG TABLET 17.2 MG PO (21:58)
[2020-02-19] MEDS: GABAPENTIN 600 MG TABLET PO (21:58)
[2020-02-20] VITALS: BP 96/49; PULSE 73; RESP 18; TEMP 36.5; O2SAT 95
[2020-02-20] MEDS: OXYCODONE IR 10 MG TABLET PO ×4 (00:55→14:23)
[2020-02-20] MEDS: hydrOXYzine pamoate 25 MG CAPSULE PO ×3 (00:55→14:27)
[2020-02-20 04:00] VITALS: BP 99/48; PULSE 69; RESP 16; TEMP 36.2; O2SAT 96
[2020-02-20] MEDS: LEVOTHYROXINE 100 MCG TABLET PO (06:19)
[2020-02-20 07:36] VITALS: BP 103/58; PULSE 68; RESP 14; TEMP 36.7; O2SAT 95
--- NOTE | 2020-02-20 08:30 | P.DS_ITS ---
History of Present Illness History of Present Illness Date Patient Seen: 02/20/20 Time Patient Seen: 08:31 Chief complaint: INPT Narrative: 61-year-old female with spinal stenosis. She has had off and on symptoms for years but everything became much worse in September of this year. She was having weakness in both of her legs and severe pain running down the posterolateral aspect of the left leg. She has been doing therapy without relief. Discharge Providers Provider Date of admission: 02/18/20 10:13 Discharge Date: 02/20/20 Primary care physician: Gayatri Hodges PA-C Consults: 02/18/20 16:17 Consult to Occupational Therapy Evaluate & Treat Comment: Physician Instructions: Evaluate and treat Consult to Physical Therapy Evaluate & Treat Comment: Physician Instructions: Evaluate and Treat Discharge provider: Isaiah Tracy MD Summary Hospital Course Discharge Diagnosis: Lumbar stenosis with radiculopathy Lumbar spondylolisthesis Hospital Course: She was brought to the operating room on 02/20/2020 where she u nderwent an L4-5 laminectomy and fusion TLIF. She did very well postoperatively with good pain control by the 2nd day. She was mobilizing well with physical therapy and independent by date of discharge. Status at Discharge Cognitive/behavioral status at discharge: oriented Functional status at discharge: uses cane/walker Overall status at discharge: patient is progressing back to baseline Exam Vital Signs (past 8 hours): - 02/20/20 04:00 Temperature 97.2 F L Pulse Rate 69 Respiratory Rate 16 Blood Pressure 99/48 L Pulse Oximetry 96 Oxygen Delivery Method Nasal Cannula Oxygen Flow Rate 0 Const Orientation: alert and oriented x3 Back/Spine/Pelvis Other: CDI. 5/5 motor both lower extremities. Objective Labs Result Diagrams: 02/19/20 06:00 Discharge Assessment & Plan Assessment and Plan Assessment: Status post laminectomy and fusion. Plan of Treatment: Discharge home Discharge Plan Discharge Plan Patient Disposition: Home Provider Discharge Comment: Follow-up 1.5 weeks Discharge orders & Medications Prescriptions: New celecoxib [Celebrex] 200 mg Capsule 200 mg PO BID PRN (Reason: pain) Qty: 60 RF: 0 docusate sodium [DOK] 100 mg Capsule 100 mg PO BID PRN (Reason: constipation) Qty: 40 RF: 0 oxycodone 5 mg Tablet 5 mg PO Q3HR PRN (Reason: Pain, Moderate (4-6)) Qty: 30 RF: 0 hydroxyzine pamoate 25 mg Capsule 25 mg PO Q4HR PRN (Reason: Nausea And Vomiting) Qty: 20 RF: 0 Continued gabapentin 600 mg Tablet 600 mg PO BEDTIME RF: 0 simvastatin 10 mg Tablet 10 mg PO BEDTIME RF: 0 pantoprazole 20 mg Tablet,Delayed Release (Dr/Ec) 20 mg PO DAILY RF: 0 acetaminophen 500 mg Capsule 500 mg PO Q6H PRN (Reason: Pain) RF: 0 Excedrin Extra Strength 250-250-65 mg Tablet 1 tab PO Q4-6H PRN (Reason: Pain) RF: 0 levothyroxine 100 mcg Capsule 100 mcg PO DAILY RF: 0 Discontinued ibuprofen 200 mg Tablet 800 mg PO BEDTIME PRN (Reason: Pain) RF: 0 Follow up/Referrals: Gayatri Hodges PA-C [Primary Care Provider] - Discharge Health Status Multidrug resistant organism: No MDRO Diet/Activity/Treatments Diet: Diet as Tolerated Activity: Limited bending, twisting, 10 lb maximum lifting Skin/Wound/Dressing Care Report to your healthcare provider any signs of infection, such as:: chills, fever, night sweats, increased pain, unusual drainage and unusual redness Dressing: May shower over dressing for the 1st 5 days after surgery. On Monday, you may remove the dressing and shower over the incision. Please replace with a clean dressing when done. Visit Report/Discharge Packet Instructions: DI for Prescription Opioid Use, DI for Transforaminal Lumbar Interbody Fusion Stand Alone Forms: Surgery Discharge Discharge Data Primary Care Provider: Gayatri Hodges VTE Deep Vein Thrombosis/Pulmonary Embolism Present on Admission: No
--- NOTE | 2020-02-20 08:30 | PM.PNPO.1 ---
Subjective Subjective Date Patient Seen: 02/20/20 Time Patient Seen: 08:30 Interval history: She is doing much better. She is feeling like she can get in and out of bed by herself. Her daughter knows how to help her. Exam Vital Signs (past 8 hours): - 02/20/20 04:00 Temperature 97.2 F L Pulse Rate 69 Respiratory Rate 16 Blood Pressure 99/48 L Pulse Oximetry 96 Oxygen Delivery Method Nasal Cannula Oxygen Flow Rate 0 Const Orientation: alert and oriented x3 Back/Spine/Pelvis Other: CDI. 5/5 motor both lower extremities. Objective Labs Result Diagrams: 02/19/20 06:00 Assessment & Plan Post-op Postoperative Procedures: Procedures Operation Date: 02/18/20 12:15 Actual Procedures Side Surgeon p L4-5 laminectomy & instrumented fusion (TLIF) with bone graft Isaiah Tracy MD she is doing great. Removed catheter. Plan for discharge home today. Quality VTE Deep Vein Thrombosis/Pulmonary Embolism Present on Admission: No
[2020-02-20] MEDS: ACETAMINOPHEN 325 MG TABLET PO (10:24)
[2020-02-20] MEDS: DOCUSATE 100 MG CAPSULE PO (10:27)
--- NOTE | 2020-02-20 10:27 | PT.IPTN ---
Current Diagnoses Spondylolisthesis, lumbar region (02/18/20) Spinal stenosis, lumbar region with neurogenic claudication (02/18/20) Surgery Performed Operation Date: 02/18/20 12:15 Actual Procedures p L4-5 laminectomy & instrumented fusion (TLIF) with bone graft - Isaiah Tracy MD Physical Therapy Treatment Note M2 PT-IP Current Condition Start: 02/19/20 12:48 Freq: NEEDED Status: Active Protocol: Document 02/19/20 09:15 AB (Rec: 02/19/20 13:08 AB [id number]) Physical Therapy Current Condition Current Condition Evaluation Date 02/19/20 Treatment Diagnosis s/p L4-5 TLIF/ fusion; difficulty in walking Onset Date 02/18/20 Precautions Lumbar Precautions Log Roll,No Twisting,Limit Bending,Lifting Restriction of 10 lbs,Gait Belt above Incisional Area M3 PT-IP Subjective Start: 02/19/20 12:48 Freq: NEEDED Status: Active Protocol: Document 02/20/20 09:51 KS (Rec: 02/20/20 15:10 KS [id number]) Subjective Physical Therapy Visit Type Type Treatment Note Visit Start Time 09:51 Visit Stop Time 10:27 Total Visit Minutes 36 Number of ENVIRONMENTAL SERVICES COORDINATOR Visits 1 Physical Therapy Visit Comments Patient Comments pt is agreeable to do PT; daughter in room for caregiver training Therapy Pain Assessment Pain When Pain Assessed During Mobility Pain Present Pain Present Denied Pain M4 PT-IP Mobility and Gait Start: 02/19/20 12:48 Freq: NEEDED Status: Active Protocol: Document 02/20/20 09:51 KS (Rec: 02/20/20 15:10 KS [id number]) PT-Bed Mobility Assessment Rolling Type of Rolling Log Rolling Level of Assist Standby Assistance Supine to Sit Supine to Sit Standby Assistance Sit to Supine Sit to Supine Contact Guard Assistance,1 Person Assistance Scooting Scooting to Edge of Bed Contact Guard Assistance PT-Transfer Assessment Sit to and From Stand Sit to and from Stand Contact Guard Assistance,1 Person Assistance,Use of Upper Extremities Equipment Transfer Assistive Device Gait Belt,Front Wheeled Walker Orthotic/Prosthetic Devices or Brace: No Transfers Transfer Destination Bed,Chair Transfer Technique ambulated using FWW Transfer Ability Level of Assist Contact Guard Assistance,1 Person Assistance,Use of Upper Extremities Comments Mobility Comments Pt in room w/ daughter upon arrival from therapy. Pts daughter assisted pt throughout treatment w/ supervision by this ENVIRONMENTAL SERVICES COORDINATOR. Pt logroll and sidelying<>sit and scooted to EOB CGA and cues provided by pts daughter. Pts daughter applied gait belt and CGA for sit<>Stand. Pt then ambulated ~[address] hallway w / FWW and CGA w/ cues for heel toe walking and breathing. Pt then ascended/descended 3 steps w/ BUE using R rail and daughter providing CGA. Pt then returned to room and performed bed mobility/logroll into and out of bed again w/ daugther providing assist and then transferred to chair. Pt and daugther state they feel safe to return home today. Pt left in room w/ all needs in reach. Gait Assessment Gait Gait Assistance Required: Contact Guard Assist Distance (Feet) 100 Able to Maintain Weight Bearing Status Yes During Gait Assistive Devices Assistive Device Gait Belt,Front Wheeled Walker Orthotic/Prosthetic Devices or Brace: No Gait Deviations General Gait Pattern Antalgic,Decreased Stride Length,Decreased Feet Clearance Factors Limiting Gait Function Factors Limiting Gait Function Decreased Activity Tolerance, Decreased Sensation,Decreased Strength,Limited Range of Motion,Pain,Poor Balance,Poor Safety Awareness Stair Climbing Assessment Evaluation Level of Assist On Stairs Contact Guard Assistance Devices Stair Climbing Assistive Devices Right Railing Technique/Endurance Stair Climbing Direction Ascend and Descend Stair Climbing Technique Step to Step Number of Steps Climbed 3 Stair Climbing Set # Repetitions (reps) 1 Comments Stair Climbing Comments Pt ascended/descended 3 steps w/ BUE on R rail and CGA and cues provided by pts daughter. Pt and daughter confirm there is a landing big enough for a chair after 3 steps for pt to rest if needed. PT-Balance Assessment Sitting Balance and Reactions Static Sitting Balance Ability Good Dynamic Sitting Balance Ability Good Standing Balance and Reactions Static Standing Balance Ability Good Dynamic Standing Balance Ability Fair Device Used FWW M5 PT-IP Objective Assessments Start: 02/19/20 12:48 Freq: NEEDED Status: Active Protocol: Document 02/19/20 09:15 AB (Rec: 02/19/20 13:08 AB [email or web address]) Orientation Orientation/Cognition Level of Alertness Alert Orientation Name,Place,Situation Safety Awareness Decreased Safety Awareness Gross Range of Motion Lower Extremity ROM Assessment Within Functional Limits Strength Lower Extremity Strength Assessment Bilaterally Impaired Comments Strength Comments RLE 4-/5 LLE 4/5 Coordination Assessment Gross Coordination Gross Coordination WNL Sensation Assessment Comments Sensation Comments able to determine light touch sensation on BLE but stated that sensation is decreased Muscle Tone Muscle Tone WNL Yes M6 PT-IP Treatment Start: 02/19/20 12:48 Freq: NEEDED Status: Active Protocol: Document 02/20/20 09:51 KS (Rec: 02/20/20 15:10 KS [id number]) Physical Therapy Treatment Education Education Provided Precautions,Safety M7 PT-IP Assessment and Plan Start: 02/19/20 12:48 Freq: NEEDED Status: Active Protocol: Document 02/20/20 09:51 KS (Rec: 02/20/20 15:10 KS [id number]) PT Summary Assessment and Plan Potential Rehabilitation Potential Good Summary Impairments Pain,ROM,Strength,Balance, Coordination,Sensation,Bed Mobility,Transfers,Gait, Activity Tolerance Progress Towards Goals Progressing Toward Goals Assessment Summary Successfully completed caregiver training w/ pt and her daughter this AM. Pt CGA for bed mobility, transfers, ambulation, and stairs. Pts daughter was able to apply gait belt and appropriate assist and cues throughout treatment. Pt ambulated ~100 ft and ascended/descended 3 steps w/ R rail. Pt and daughter confirm there is a landing after 3 steps big enough to fit a chair if pt needs to rest. Pt and daughter feel ready to return home today. Goals Bed Mobility Goal Standby Assistance Transfer Goal Standby Assistance,Front Wheeled Walker Gait Goal Standby Assistance,Front Wheel Walker Gait Distance 100 Other Goals improve ambulation using FWW/ 4WW SBA 200 ft up/down 6 steps 1 rail SBA Days to Meet Goals 5 Frequency of Treatment Frequency Of Treatment Twice a Day Treatment Plan Physical Therapy Treatment Plan Bed Mobility Training,Transfer Training,Gait Training, Therapeutic Exercise,Balance Retraining,Post Op Education, Discharge Planning,Hot or Cold Pack,Neuromuscular Re-ed, Coordination Retraining,Manual Therapy Recommendations To Nursing Amount of Assist Needed 1 Person Assist Discharge Recommendations PT Discharge Recommendations Home with 31/10 Assist,Home Health Transportation Needs at Discharge Private Vehicle
--- NOTE | 2020-02-20 10:27 | CM.DPNOTE ---
DC Note DC order in place and patient is expected to return home w/no needs today. This NETWORK PLANNER will remain available in case any DC needs or concerns arise. ELADIO
[2020-02-20] MEDS: MAGNESIUM HYDROXIDE 30 ML UDC PO (10:28)
[2020-02-20] MEDS: CELECOXIB 200 MG CAPSULE PO (10:28)
[2020-02-20] MEDS: PANTOPRAZOLE 20 MG TABLET PO (10:29)
[2020-02-20 11:14] VITALS: BP 107/53; PULSE 76; RESP 16; TEMP 36.9; O2SAT 98
--- NOTE | 2020-02-20 15:47 | PC.NURSE ---
discharge instructions and home care handouts reviewed with patient and her daughter. Coversite dressing intact. Patient voided without difficulty, and cleared by P.T. for discharge to home. IV dc'd intact. Patient has follow up appt. scheduled. Patient instructed to call surgeon's office with questions or concerns. Escorted out via wheelchair with all belongings.
== END 2020-02-20 15:00 | disposition home or self-care (01) | DRG 455 ==
PROVIDERS: Admitting Provider Orthopaedic Surgery; PCP Physician Assistant; Referring Provider Physician Assistant; Visit Provider Orthopaedic Surgery
PROC: 0SG00AJ Fusion of Lumbar Vertebral Joint with Interbody Fusion Device, Posterior Approach, Anterior Column, Open Approach (ICD-10-PCS; principal; 2020-02-18 12:15)
DX: M48.062 Spinal stenosis, lumbar region with neurogenic claudication (principal); M43.16 Spondylolisthesis, lumbar region; E03.9 Hypothyroidism, unspecified; E78.5 Hyperlipidemia, unspecified; K21.9 Gastro-esophageal reflux disease without esophagitis; Z11.59 Encounter for screening for other viral diseases
CPT/HCPCS: 36415; 72100; 76000; 85014; 85018; 87635; 94762; 97116; 97162; 97166; 97530; 97535; C1776; J0330; J0595; J0690; J1100; J1170; J2060; J2250; J2274; J2405; J2704; J3010